=== PATIENT | female | born 1940 | race Caucasian/White ===

== ENCOUNTER → 2016-08-24 | Day surgery (SDC) | payer MEDICARE ==
[~2016-08-24] VITALS: Ht 154.9 cm; Wt 63.9 kg
[~2016-08-24] MED LIST: 0.9% Sodium Chloride 1,000 ML IV SCH; ALPR0.254 PO; ALPR0.2552 PO; BILB1CAP PO; BIOT10TA PO; CALCIUM PO; CRAN200C2 PO; ESCI10TA52 PO; ESTR1PAT80 TRANSDERM; ESTR1TAB24 PO; Estradiol PO; HCTZ25 PO; HYDR25TA4 PO; LISI30TA PO; LISI30TA5 PO; MAGN400T23 PO; METO-272 PO; MILK1CAP3 PO; OMEP20CA11 PO; POTASSIUM; Sodium Chloride LOK Flush 10 mL Syringe IV PRN; [UNRECOGNIZED DRUG - OTHER] PO; fentaNYL-PF 50 mCg/mL 2 mL Inj IVPUSH PRN; fentaNYL-PF 50 mCg/mL 2 mL Inj ONE
[2016-08-24 10:54] VITALS: BP 127/65; PULSE 57; RESP 16; O2SAT 99
[2016-08-24 12:10] VITALS: BP 124/49; PULSE 54; RESP 14; O2SAT 93
[2016-08-24 12:20] VITALS: BP 110/48; PULSE 59; RESP 14; O2SAT 95
[2016-08-24 12:30] VITALS: BP 122/62; PULSE 56; RESP 14; O2SAT 96
--- NOTE | 2016-08-24 16:22 | ENDO ---
[address] [address] ENDOSCOPY PROCEDURE PATIENT: MADHU DÍAZ : 1940 MR#: [id number] ADMIT: 08/24/2016 JOB ID: [id number] PRIMARY PROVIDER: Ronald De La Paz MD PROCEDURE: Esophagogastroduodenoscopy with biopsy and a colonoscopy. INDICATIONS: A 75-year-old female with nausea that seems to be responsive to antianxiety medication. She also has a family history of colon cancer and presents for colon cancer screening. EQUIPMENT: GIF H 180 and a PCF H 180 AL. SEDATION: Versed 4 mg and 100 mcg fentanyl. COMPLICATIONS: None identified. BOWEL PREPARATION: Fair, adequate exam. PROCEDURE INFORMATION: After the risks and benefits were reviewed, the patient provided written and verbal informed consent. She is placed into the left lateral decubitus position. Sedation was achieved as above. The scope was introduced into the mouth through the bite block and advanced to the second portion of the duodenum. The scope was slowly withdrawn to carefully examine the mucosa for any defects or lesions. Retroflexed views were accomplished in the stomach, the stomach was decompressed, and the scope removed from the patient, who tolerated the procedure well. The patient was then turned around. A digital rectal examination accomplished. No significant pathology apart from some mild internal and external nonbleeding, nonthrombosed hemorrhoids. The scope was introduced into the rectum and advanced under direct visualization to the level of the cecum, as identified by the appendiceal orifice and ileocecal valve. The scope was slowly withdrawn to carefully examine the mucosa for any defects or lesions. Retroflexed views were avoided in the rectum. Multiple direct views were made through the dentate line for exclusion of pathology. The colon was decompressed and the scope removed from the patient, who tolerated the procedure well. FINDINGS: 1. Duodenum: Very difficult to navigate from the bulb through to the second portion based on a sharp angle between D1 and D2. No ulcers. No mass lesions. No stricturing. No significant mucosal pathology appreciated. 2. Stomach: No gastric outlet obstruction. No ulcers. No mass lesions. Diffuse mild gastropathy was noted throughout and random biopsy was thus acquired for exclusion of Helicobacter or other histopathology. The patient had a sizable stomach that was rather J-shaped. Retroflexed views of the LES were unremarkable. 3. Esophagus: The squamocolumnar junction correlated with the top of the gastric folds. The GEJ was at 38 cm from the incisors. No acute erosive changes. No strictures. No mass lesions. 4. Colon: No evidence of any colitis or proctitis. No significant polyps, mass lesions throughout. ENDOSCOPIC DIAGNOSES: 1. Subtle sliding hiatal hernia (not mentioned above). 2. Mild gastropathy. 3. Hemorrhoids. 4. Otherwise visually unremarkable colonoscopy. RECOMMENDATIONS: 1. Await histopathology. 2. If Helicobacter is found, it will need to be eradicated with standard triple therapy, recognizing the patient's allergy to AUGMENTIN. 3. Continue antianxiety intervention through primary care. 4. Antireflux options are in essence wide open with only a very subtle sliding hiatal hernia and no evidence of esophagitis at present. 5. Consider repeating colonoscopy in five years in the context of family history.
--- NOTE | 2016-08-25 13:44 | PATH ---
SURGICAL PATHOLOGY Attending Physician:Elise Baires CASE STATUS: Signed Out PATIENT NAME: MADHU DÍAZ PID: [id number] : 1940 DATE COLLECTED:08/24/2016 20:30 SPECIMEN: Gastric, Biopsy CLINICAL HISTORY: 1). GASTRIC BIOPSIES FINAL DIAGNOSIS: 1.STOMACH, BIOPSIES: BODY-TYPE MUCOSA WITH NO DIAGNOSTIC ABNORMALITY. Negative for Helicobacter pylori organisms. Negative for intestinal metaplasia. Negative for dysplasia and malignancy. ICD10 code R10.9 GROSS DESCRIPTION: The specimen is received in one formalin filled container labeled with the patient's name, sublabeled "gastric" and consists of 2 portions of tissue which aggregate to 0.2 x 0.2 x 0.1 CM. The specimen is entirely submitted in one cassette. 08/24/2016 [facility] MICRO DESCRIPTION: See diagnosis. ICD-9 CODES: CPT CODES: 1: 16878 Electronically Signed Out Mariana Robertson MD [facility] [address], [place] [address] Technical component performed at [facility], [facility] [address], [place], [address]
== END | disposition home or self-care (01) ==
LOC: END 00:56
PROVIDERS: ATTEND Internal Medicine Gastroenterology
DX: Z12.11 Encounter for screening for malignant neoplasm of colon (principal); K64.8 Other hemorrhoids; K64.4 Residual hemorrhoidal skin tags; Z80.0 Family history of malignant neoplasm of digestive organs; K31.9 Disease of stomach and duodenum, unspecified; K44.9 Diaphragmatic hernia without obstruction or gangrene; F41.9 Anxiety disorder, unspecified
CPT/HCPCS: 43239; 88305; 99153; G0105; G0500; J2250; J3010; J7030